=== PATIENT | male | born 1970 | race Hispanic/Latino ===

== ENCOUNTER 2019-04-10 10:03 | Emergency (ER) | payer OTHER ==
[2019-04-10] MEDS ORDERED: LIDOCAINE (1%) 10 MG/1 ML VIAL 20 ML MDV INFILTRATI ONE ×2 (10:24)
[2019-04-10] MEDS ORDERED: BUPIVACAINE/PF (0.5%) 5 MG/1 ML 10 ML VIAL INFILTRATI ONE ×2 (10:24)
[2019-04-10] MEDS ORDERED: SODIUM CHLORIDE 0.9% 1000 ML 1,000 ML IV ONE (10:43)
[2019-04-10] MEDS ORDERED: TETANUS,DIPH,PERTUSS(ACELL) VACCINE 0.5 ML SYRINGE IM ONE (10:44)
[2019-04-10 11:01] LABS: Basophils # (Auto) 0.1 K/mm3 (0.0-0.1); Basophils % (Auto) 0.8 % (0.0-1.8); Eosinophils # (Auto) 0.1 K/mm3 (0.0-0.4); Eosinophils % (Auto) 1.4 % (0.0-4.3); Hematocrit 44.5 % (35.5-45.6); Hemoglobin 15.3 gm/dl (11.8-15.2); Lymphocytes # (Auto) 3.9 K/mm3 (1.2-5.4); Lymphocytes % (Auto) 41.4 % (13.4-35.0); Mean Corpuscular HGB Conc 34 % (32-34); Mean Corpuscular Volume 93 fl (84-94); Monocytes # (Auto) 0.7 K/mm3 (0.0-0.8); Monocytes % (Auto) 7.3 % (0.0-7.3); Platelet Count 252 K/mm3 (140-440); Red Blood Count 4.82 M/mm3 (3.65-5.03); Red Cell Distribution Width 13.3 % (13.2-15.2)
[2019-04-10 11:10] LABS: BUN/Creatinine Ratio 18; Blood Urea Nitrogen 16 mg/dL (9-20); Calcium 9.8 mg/dL (8.4-10.2); Hemolysis Index 75
--- NOTE | 2019-04-10 11:20 | XRay Report ---
LEFT HAND 3 VIEW(S) INDICATION / CLINICAL INFORMATION: trauma --left hand injury with chainsaw, 4th and 5th digits. COMPARISON: None available. FINDINGS: BONES / JOINT(S): There is a linear defect in the ulnar aspect of the midportion of the proximal phal anx of the left ring finger likely related to chainsaw injury. Tiny adjacent bone fragments. Otherwis e, no fracture. No significant arthritis. SOFT TISSUES: Soft tissue laceration of the ulnar aspect of the proximal ring finger and possibly the tip of the little finger. ADDITIONAL FINDINGS: None. Signer Name: Keerthi Díaz MD Signed: 04/10/2019 11:16 AM Workstation Name: [email or web address]
[2019-04-10] MEDS ORDERED: MORPHINE 2 MG/1 ML INJ IV ONE (11:38)
[2019-04-10] MEDS ORDERED: WATER FOR INJ Sterile (PF) 0 ML ONE (11:55)
--- NOTE | 2019-04-10 13:47 | Emergency Department Report ---
Blank Doc - Documentation Documentation: Procedure Name: Laceration Repair left fourth phalanges Indication: Reduce risk of infection Location: Left fourth phalange Pre-Procedure Diagnosis: Laceration Post-Procedure Diagnosis: Repaired Laceration Informed consent was obtained before procedure started. PROCEDURE: The appropriate timeout was taken. The area was prepped and draped in the usual sterile fashion. Local anesthesia was achieved using 1% lidocaine x10 cc of without epinephrine. Initial digital block was attempted with bupivacaine however unsuccessful the wound was copiously irrigated with normal saline x500 cc. 4-0 Prolene was placed in simple interrupted fashion. 4-0 Vicryl was placed x1 to self acute tissue to ligate a bleeding vessel. The flexor tendon was visualized appeared to be completely severed the extensor tendon was also visualized had a partial linear laceration. The proximal phalangeal was also visualized showing an indentation which appeared to be secondary to a circular saw Estimated blood loss was less than 3mL. A dressing was applied to the area and anticipatory guidance, as well as standard post-procedure care, was explained. Return precautions are given. The patient tolerated the procedure well without complications. Pleased with the outcome and and several questions answered. Follow-up visit for further evaluation for tendon repair and bone healing is recommended. Antibiotics were already provided..
[2019-04-10] MEDS ORDERED: KETOROLAC 30 MG/1 ML INJ ONE (15:08)
[2019-04-10] MEDS ORDERED: oxyCODONE /ACETAMINOPHEN 5-325MG TAB ONE (15:08)
[2019-04-10] MEDS ORDERED: KETOROLAC 30 MG/1 ML INJ IV ONE (15:10)
[2019-04-10] MEDS ORDERED: oxyCODONE /ACETAMINOPHEN 5-325MG TAB PO ONE (15:11)
[2019-04-10 15:36] VITALS: BP 133/63
== END 2019-04-10 15:36 | disposition home or self-care (01) ==
LOC: ED 10:03
DX: S61.215A Laceration without foreign body of left ring finger without damage to nail, initial encounter (principal); W31.1XXA Contact with metalworking machines, initial encounter; Y93.89 Activity, other specified; Y92.89 Other specified places as the place of occurrence of the external cause; Y99.8 Other external cause status
CPT/HCPCS: 12002; 36415; 73130; 80048; 85025; 90471; 90715; 96365; 96375; 99284; J0690; J1885; J2270; J7030